=== PATIENT | female | born 1965 | race Caucasian/White ===

== ENCOUNTER 2017-11-30 14:31 | Inpatient (IN) | payer OTHER ==
[~2017-11-30] VITALS: Ht 177.8 cm; Wt 90.0 kg
[2017-11-30] VITALS (7 sets, daily range): BP systolic 134–238; BP diastolic 62–119; PULSE 65–129; RESP 14–20; TEMP 98.1–98.6; O2SAT 96–98
--- NOTE | 2017-11-30 15:05 | PD ---
HPI Chief Complaint: Medical Clearance Time Seen by Provider: 14:54 Travel History International Travel<30 days: No Contact w/Intl Traveler<30days: No Traveled to known affect area: No History of Present Illness HPI 52-year-old female patient with history of psychiatric issues, depression, hypertension, presents to the ER today brought in by EMS because somebody states that she was in front of a marijuana clinic, appears disoriented, had complained of nausea, and they had brought her in for medical evaluation. She was given Zofran by EMS, denies any vomiting, chest pains, or other issues. She is quite difficult to talk to, does not want to answer some questions. Appears somewhat distracted. She denies any homicidal or suicidal ideation. Her blood pressure is quite elevated in the ER. Modifying Factors: None Associated Signs & Symptoms: Disorientation, nausea, elevated blood pressure Risk Factors: Psychiatric history PFSH Past Medical History ?: Not Social History Tobacco Use: No Allergies-Medications (Allergen,Severity, Reaction): Coded Allergies: cyclobenzaprine (Verified Allergy, Intermediate, 11/30/17) itch Penicillins (Verified Allergy, Unknown, 11/30/17) Review of Systems ROS Limitations: Altered Mental Status Physical Exam Narrative GENERAL: Well-developed middle-age white female patient who appears agitated, awake, alert, oriented 3. SKIN: Focused skin assessment warm/dry. HEAD: Atraumatic. Normocephalic. EYES: Pupils equal and round. No scleral icterus. No injection or drainage. ENT: No nasal bleeding or discharge. Mucous membranes pink and moist. NECK: Trachea midline. No JVD. CARDIOVASCULAR: Regular rate and rhythm. No murmur appreciated. RESPIRATORY: No accessory muscle use. Clear to auscultation. Breath sounds equal bilaterally. GASTROINTESTINAL: Abdomen soft, non-tender, nondistended. Hepatic and splenic margins not palpable. MUSCULOSKELETAL: No obvious deformities. No clubbing. No cyanosis. No edema. NEUROLOGICAL: Awake and alert. No obvious cranial nerve deficits. Motor grossly within normal limits. Normal speech. PSYCHIATRIC: Agitated mood and affect; insight and judgment poor. Data Data Last Documented VS Vital Signs Date Time Temp Pulse Resp B/P (MAP) Pulse Ox O2 Delivery O2 Flow Rate FiO2 11/30/17 16:08 129 18 238/119 (158) 98 Room Air 11/30/17 14:40 98.6 Orders Orders Complete Blood Count With Diff (11/30/17 14:54) Comprehensive Metabolic Panel (11/30/17 14:54) Thyroid Stimulating Hormone (11/30/17 14:54) Urinalysis - C+S If Indicated (11/30/17 14:54) Electrocardiogram (11/30/17 14:54) Psych Screen (11/30/17 14:54) Drug Screen, Random Urine (11/30/17 14:54) Alcohol (Ethanol) (11/30/17 14:54) Lipase (11/30/17 14:54) Lorazepam Inj (Ativan Inj) (11/30/17 15:15) Sodium Chlor 0.9% 1000 Ml Inj (Ns 1000 M (11/30/17 16:00) Metoprolol Tartrate Inj (Lopressor Inj) (11/30/17 16:15) Admit To Inpatient (11/30/17 ) Code Status (11/30/17 16:17) Vital Signs (Adult) Q4H (11/30/17 16:17) Activity Oob Ad Pennie (11/30/17 16:17) Cardiovascular Surgeon / Telemetry MARY.Q8H (11/30/17 16:17) Intake + Output MARY.QSHIFT (11/30/17 16:17) Diet Heart Healthy (11/30/17 Dinner) Sodium Chloride 0.9% Flush (Ns Flush) (11/30/17 16:30) Sodium Chloride 0.9% Flush (Ns Flush) (11/30/17 21:00) Labetalol Inj (Trandate Inj) (11/30/17 16:30) Clonidine (Catapres) (11/30/17 16:30) Basic Metabolic Panel (Bmp) (12/01/17 06:00) Complete Blood Count With Diff (12/01/17 06:00) RENIN (11/30/17 16:17) Ua Includes Microscopic (11/30/17 16:17) Micro Albumin Creat Random Ur (11/30/17 16:17) Total Protein 24hr Urine (11/30/17 16:17) Metanephrines 24 Hr Urine (11/30/17 16:17) Electrocardiogram (11/30/17 ) Echo 2d Comp With Doppler (11/30/17 ) Inpatient Certification (11/30/17 ) Nifedipine Sr (Procardia Xl) (11/30/17 16:30) Consult Psychiatry (11/30/17 ) Levothyroxine (Synthroid) (11/30/17 16:45) Aspirin Ec (Ecotrin Ec) (12/01/17 09:00) Scd Bilateral/Knee High MARY.QSHIFT (11/30/17 16:32) Haloperidol Inj (Haldol Inj) (11/30/17 16:45) Free Thyroxine (T4) (11/30/17 16:32) Rapid Plasma Regin (Rpr) W Ttr (11/30/17 16:32) Vitamin B12 (11/30/17 16:32) Folate, Serum (11/30/17 16:32) Ammonia (11/30/17 16:32) Admit Order (Ed Use Only) (11/30/17 16:29) Labs Laboratory Tests Test 11/30/17 15:11 White Blood Count 11.2 TH/MM3 Red Blood Count 5.45 MIL/MM3 Hemoglobin 14.3 GM/DL Hematocrit 44.4 % Mean Corpuscular Volume 81.6 FL Mean Corpuscular Hemoglobin 26.2 PG Mean Corpuscular Hemoglobin Concent 32.1 % Red Cell Distribution Width 15.9 % Platelet Count 363 TH/MM3 Mean Platelet Volume 9.1 FL Neutrophils (%) (Auto) 77.9 % Lymphocytes (%) (Auto) 13.6 % Monocytes (%) (Auto) 7.5 % Eosinophils (%) (Auto) 0.4 % Basophils (%) (Auto) 0.6 % Neutrophils # (Auto) 8.7 TH/MM3 Lymphocytes # (Auto) 1.5 TH/MM3 Monocytes # (Auto) 0.8 TH/MM3 Eosinophils # (Auto) 0.0 TH/MM3 Basophils # (Auto) 0.1 TH/MM3 CBC Comment DIFF FINAL Differential Comment Urine Color YELLOW Urine Turbidity HAZY Urine pH 6.0 Urine Specific [place] 1.032 Urine Protein 100 mg/dL Urine Glucose (UA) NEG mg/dL Urine Ketones 10 mg/dL Urine Occult Blood NEG Urine Nitrite NEG Urine Bilirubin NEG Urine Urobilinogen 4.0 MG/DL Urine Leukocyte Esterase TRACE Urine RBC 1 /hpf Urine WBC 3 /hpf Urine Squamous Epithelial Cells 10 /hpf Urine Bacteria OCC /hpf Urine Hyaline Casts 9 /lpf Urine Mucus MANY /lpf Microscopic Urinalysis Comment CULT NOT INDICATED Blood Urea Nitrogen 17 MG/DL Creatinine 1.21 MG/DL Random Glucose 115 MG/DL Total Protein 8.5 GM/DL Albumin 4.2 GM/DL Calcium Level 9.8 MG/DL Alkaline Phosphatase 80 U/L Aspartate Amino Transf (AST/SGOT) 20 U/L Alanine Aminotransferase (ALT/SGPT) 26 U/L Total Bilirubin 0.4 MG/DL Sodium Level 140 MEQ/L Potassium Level 3.9 MEQ/L Chloride Level 106 MEQ/L Carbon Dioxide Level 21.3 MEQ/L Anion Gap 13 MEQ/L Estimat Glomerular Filtration Rate 46 ML/MIN Lipase 350 U/L Thyroid Stimulating Hormone 3rd Gen 1.780 uIU/ML Urine Opiates Screen NEG Urine Barbiturates Screen NEG Urine Amphetamines Screen NEG Urine Benzodiazepines Screen NEG Urine Cocaine Screen NEG Urine Cannabinoids Screen POS Ethyl Alcohol Level LESS THAN 3 MG/DL MDM Medical Decision Making Medical Screen Exam Complete: Yes Emergency Medical Condition: Yes Medical Record Reviewed: Yes Interpretation(s) Laboratory Tests Test 11/30/17 15:11 White Blood Count 11.2 TH/MM3 (4.0-11.0) Red Blood Count 5.45 MIL/MM3 (4.00-5.30) Mean Corpuscular Hemoglobin 26.2 PG (27.0-34.0) Neutrophils (%) (Auto) 77.9 % (16.0-70.0) Neutrophils # (Auto) 8.7 TH/MM3 (1.8-7.7) Urine Turbidity HAZY (CLEAR) Urine Protein 100 mg/dL (NEG-TRACE) Urine Ketones 10 mg/dL (NEG) Urine Urobilinogen 4.0 MG/DL (LESS THAN Urine Leukocyte Esterase TRACE (NEG) Urine Bacteria OCC /hpf (NONE) Urine Mucus MANY /lpf (OCC) Creatinine 1.21 MG/DL (0.50-1.00) Random Glucose 115 MG/DL (74-106) Total Protein 8.5 GM/DL (6.4-8.2) Estimat Glomerular Filtration Rate 46 ML/MIN (>89) Urine Cannabinoids Screen POS (NEG) Differential Diagnosis Hypertensive encephalopathy versus anxiety attack versus psychosis versus substance abuse Narrative Course Abdomen is benign and I do not suspect an acute intra-abdominal process. However, she is quite anxious and I had tried to give her Ativan but she is refusing at this time. She states that she wants to get her blood pressure issues checked out. She also states that she feels dehydrated. She was given some IV fluids, and metoprolol IV was ordered for the blood pressure elevations. My plan at this point would be to admit the patient for further treatment of her blood pressure. Case has been discussed with Dr. Foster who agrees to admit the patient. Lab work was fairly unremarkable otherwise. Diagnosis Primary Impression: Hypertensive urgency Admitting Information Admitting Physician Requests: it Fatmata Garcia MD November 30, 2017 15:05
[2017-11-30] MEDS ORDERED: LORazepam 2 MG/ML VIAL IV PUSH ONE ×2 (15:15→17:30)
[2017-11-30 15:27] LABS: AUTOMATED NEUTROPHIL # 8.7 TH/MM3 (1.8-7.7); BASOPHIL # 0.1 TH/MM3 (0-0.2); BASOPHIL % 0.6 % (0.0-2.0); EOSINOPHIL % 0.4 % (0.0-4.0); HEMATOCRIT 44.4 % (35.0-46.0); HEMOGLOBIN 14.3 GM/DL (11.6-15.3); LYMPH % 13.6 % (9.0-44.0); LYMPHOCYTE # 1.5 TH/MM3 (1.0-4.8); MEAN CELL VOLUME 81.6 FL (80.0-100.0); MEAN CORPUSCULAR HEMOGLOBIN 26.2 PG (27.0-34.0); MEAN CORPUSCULAR HGB CONC 32.1 % (32.0-36.0); MEAN PLATELET VOLUME 9.1 FL (7.0-11.0); MONO % 7.5 % (0.0-8.0); MONOCYTE # 0.8 TH/MM3 (0-0.9); NEUT % 77.9 % (16.0-70.0); PLATELET COUNT 363 TH/MM3 (150-450); RED BLOOD COUNT 5.45 MIL/MM3 (4.00-5.30); RED CELL DISTRIBUTION WIDTH 15.9 % (11.6-17.2); WHITE BLOOD COUNT 11.2 TH/MM3 (4.0-11.0)
[2017-11-30 15:34] LABS: BACTERIA, URINE OCC /hpf; BILIRUBIN, URINE NEG (NEG); BLOOD, URINE NEG (NEG); GLUCOSE,URINE NEG (NEG); HYALINE CAST, URINE 9 /lpf (RARE); KETONE, URINE 10 mg/dL (NEG); MUCUS URINE MANY /lpf (OCC); NITRITE,URINE NEG (NEG); SQUAMOUS EPITHELIAL CELL URINE 10 /hpf (0-5); URINE COLOR YELLOW (YELLW/STRAW); URINE LEUKOCYTE ESTERASE TRACE (NEG)
[2017-11-30 15:48] LABS: ALKALINE PHOSPHATASE 80 U/L (45-117); TOTAL BILIRUBIN ADULT 0.4 MG/DL (0.2-1.0); TOTAL PROTEIN 8.5 GM/DL (6.4-8.2)
[2017-11-30 15:53] LABS: ALBUMIN 4.2 GM/DL (3.4-5.0); ALT (GPT) 26 U/L (10-53); AST (GOT) 20 U/L (15-37); BICARBONATE 21.3 MEQ/L (21.0-32.0); BLOOD UREA NITROGEN 17 MG/DL (7-18); CALCIUM 9.8 MG/DL (8.5-10.1); CHLORIDE 106 MEQ/L (98-107); CREATININE 1.21 MG/DL (0.50-1.00); GLOMERULAR FILTRATION RATE 46 ML/MIN (>89); GLUCOSE,RANDOM 115 MG/DL (74-106); SODIUM (NA) 140 MEQ/L (136-145)
[2017-11-30] MEDS ORDERED: SODIUM CHLOR 0.9% 1000 ML INJ 1,000 ML IV ONE (16:00)
[2017-11-30] MEDS ORDERED: METOPROLOL TARTRATE 5 MG/5 ML VIAL IV PUSH PRN (16:15)
[2017-11-30] MEDS ORDERED: SODIUM CHLORIDE 0.9% FLUSH 10 ML FLUSH IV FLUSH PRN (16:30)
[2017-11-30] MEDS ORDERED: LABETALOL HCL 100 MG/20 ML VIAL IV PUSH PRN (16:30)
[2017-11-30] MEDS: NIFEdipine 30 MG SUSTAINED RELEASE TAB PO SCH (16:30)
[2017-11-30] MEDS ORDERED: cloNIDine HCL 0.1 MG TAB PO PRN (16:30)
--- NOTE | 2017-11-30 16:38 | HHI.HP ---
HPI Service CP Hospitalists Primary Care Physician No Primary Care Physician Admission Diagnosis HTN Urgency Chief Complaint: AMS Travel History International Travel<30 Days: No Contact w/Intl Traveler <30 Da: No Traveled to Known Affected Are: No History of Present Illness This a 52-year-old female patient with past medical history which includes hypertension not currently taking her prescribed medication, hyperlipidemia, hypothyroidism and LVH. Patient was brought to the emergency department by EMS after she was found in front of a marijuana clinic, appearing disoriented. Per ER notes patient had complained of nausea to EMS and was given Zofran. On evaluation patient appears acutely psychotic and is unable to give a acute history. Patient also agitated and wanting to leave the hospital. Patient has been placed under valderrama act by ER MD. Patient denies CP, SOB, N/V/D/C, fevers, chills or dysuria. Information gathered from patient as well as prior charting. BP on arrival to the ER 213/105 then increased to 238/119 Review of Systems ROS Limitations: Clinical Condition, Poor Historian Past Family Social History Past Medical History hypertension not currently taking her prescribed medication, hyperlipidemia, hypothyroidism and LVH Past Surgical History Knee surgery Reported Medications Patient reports she is not currently taking any medication View of outpatient records patient has not worked up any medication from [facility] pharmacy since June 2017 Allergies: Coded Allergies: cyclobenzaprine (Verified Allergy, Intermediate, 11/30/17) itch Penicillins (Verified Allergy, Unknown, 11/30/17) Family History Noncontributory Social History EtOH use Tobacco use Illicit drug use, urine toxicology positive for cannabinoids Physical Exam Vital Signs Vital Signs Date Time Temp Pulse Resp B/P (MAP) Pulse Ox O2 Delivery O2 Flow Rate FiO2 11/30/17 16:08 129 18 238/119 (158) 98 Room Air 11/30/17 14:40 98.6 110 17 213/105 (141) 97 Physical Exam GENERAL: This is a well-nourished, well-developed patient SKIN: No rashes, ecchymoses or lesions. Cool and dry. HEAD: Atraumatic. Normocephalic. No temporal or scalp tenderness. EYES: Extraocular motions intact. No scleral icterus. No injection or drainage. CARDIOVASCULAR: tachycardic RESPIRATORY: Clear to auscultation. Breath sounds equal bilaterally. GASTROINTESTINAL: Abdomen soft, non-tender, nondistended. MUSCULOSKELETAL: Extremities without clubbing, cyanosis, or edema. No joint tenderness, effusion, or edema noted. No calf tenderness. Negative Homans sign bilaterally. NEUROLOGICAL: Awake and alert but confused. No focal deficits noted. Motor and sensory grossly within normal limits. Five out of 5 muscle strength in all muscle groups. pressured speech. Laboratory Laboratory Tests Test 11/30/17 15:11 White Blood Count 11.2 Red Blood Count 5.45 Hemoglobin 14.3 Hematocrit 44.4 Mean Corpuscular Volume 81.6 Mean Corpuscular Hemoglobin 26.2 Mean Corpuscular Hemoglobin Concent 32.1 Red Cell Distribution Width 15.9 Platelet Count 363 Mean Platelet Volume 9.1 Neutrophils (%) (Auto) 77.9 Lymphocytes (%) (Auto) 13.6 Monocytes (%) (Auto) 7.5 Eosinophils (%) (Auto) 0.4 Basophils (%) (Auto) 0.6 Neutrophils # (Auto) 8.7 Lymphocytes # (Auto) 1.5 Monocytes # (Auto) 0.8 Eosinophils # (Auto) 0.0 Basophils # (Auto) 0.1 CBC Comment DIFF FINAL Differential Comment Urine Color YELLOW Urine Turbidity HAZY Urine pH 6.0 Urine Specific [place] 1.032 Urine Protein 100 Urine Glucose (UA) NEG Urine Ketones 10 Urine Occult Blood NEG Urine Nitrite NEG Urine Bilirubin NEG Urine Urobilinogen 4.0 Urine Leukocyte Esterase TRACE Urine RBC 1 Urine WBC 3 Urine Squamous Epithelial Cells 10 Urine Bacteria OCC Urine Hyaline Casts 9 Urine Mucus MANY Microscopic Urinalysis Comment CULT NOT INDICATED Blood Urea Nitrogen 17 Creatinine 1.21 Random Glucose 115 Total Protein 8.5 Albumin 4.2 Calcium Level 9.8 Alkaline Phosphatase 80 Aspartate Amino Transf (AST/SGOT) 20 Alanine Aminotransferase (ALT/SGPT) 26 Total Bilirubin 0.4 Sodium Level 140 Potassium Level 3.9 Chloride Level 106 Carbon Dioxide Level 21.3 Anion Gap 13 Estimat Glomerular Filtration Rate 46 Lipase 350 Thyroid Stimulating Hormone 3rd Gen 1.780 Urine Opiates Screen NEG Urine Barbiturates Screen NEG Urine Amphetamines Screen NEG Urine Benzodiazepines Screen NEG Urine Cocaine Screen NEG Urine Cannabinoids Screen POS Ethyl Alcohol Level LESS THAN 3 Result Diagram: 11/30/17 1511 11/30/17 1511 Caprini VTE Risk Assessment Caprini VTE Risk Assessment: No/Low Risk (score <= 1) Caprini Risk Assessment Model Point Value = 1 Point Value = 2 Point Value = 3 Point Value = 5 Age 41-60 Minor surgery BMI > 25 kg/m2 Swollen legs Varicose veins or History of unexplained or recurrent spontaneous Oral contraceptives or hormone replacement Sepsis (< 1 month) Serious lung disease, including pneumonia (< 1 month) Abnormal pulmonary function Acute myocardial infarction Congestive heart failure (< 1 month) History of inflammatory bowel disease Medical patient at bed rest Age 61-74 Arthroscopic surgery Major open surgery (> 45 min) Laparoscopic surgery (> 45 min) Malignancy Confined to bed (> 72 hours) Immobilizing plaster cast Central venous access Age >= 75 History of VTE Family history of VTE Factor V Leiden Prothrombin [id number] Lupus anticoagulant Anticardiolipin antibodies Elevated serum homocysteine Heparin-induced thrombocytopenia Other congenital or acquired thrombophilia Stroke (< 1 month) Elective arthroplasty Hip, pelvis, or leg fracture Acute spinal cord injury (< 1 month) Prophylaxis Regimen Total Risk Factor Score Risk Level Prophylaxis Regimen 0-1 Low Early ambulation 2 Moderate Order ONE of the following: *Sequential Compression Device (SCD) *Heparin 5000 units SQ BID 3-4 Higher Order ONE of the following medications: *Heparin 5000 units SQ TID *Enoxaparin/Lovenox 40 mg SQ daily (WT < 150 kg, CrCl > 30 mL/min) *Enoxaparin/Lovenox 30 mg SQ daily (WT < 150 kg, CrCl > 10-29 mL/min) *Enoxaparin/Lovenox 30 mg SQ BID (WT < 150 kg, CrCl > 30 mL/min) AND/OR *Sequential Compression Device (SCD) 5 or more Highest Order ONE of the following medications: *Heparin 5000 units SQ TID (Preferred with Epidurals) *Enoxaparin/Lovenox 40 mg SQ daily (WT < 150 kg, CrCl > 30 mL/min) *Enoxaparin/Lovenox 30 mg SQ daily (WT < 150 kg, CrCl > 10-29 mL/min) *Enoxaparin/Lovenox 30 mg SQ BID (WT < 150 kg, CrCl > 30 mL/min) AND *Sequential Compression Device (SCD) Assessment and Plan Problem List: (1) Hypertensive urgency ICD Codes: I16.0 - Hypertensive urgency Plan: Patient started on Procardia 30 mg twice daily Clonidine as needed HTN likely related to agitation and psychosis (2) Hypothyroidism ICD Codes: E03.9 - Hypothyroidism, unspecified Plan: - resume patient's home Synthroid 50 mcg daily - TSH 1.78, free T4 (3) Acute psychosis ICD Codes: F23 - Brief psychotic disorder Plan: - consult psych team, patient may require in patient psych admission - Patient currently under valderrama act per ER MD - Toxicology screen positive for Cannabinoids - UA reviewed no culture indicated - Ethyl alcohol level < 3 - TSH 1.78, free T4, B12 584, Folate 17.1, RPR nonreactive - CT head pending - Consult to psych Physician Certification 2 Midnight Certification Type: Admission for Inpatient Services Order for Inpatient Services The services are ordered in accordance with Medicare regulations or non- Medicare payer requirements, as applicable. In the case of services not specified as inpatient-only, they are appropriately provided as inpatient services in accordance with the 2-midnight benchmark. Estimated LOS (days): 2 days is the estimated time the patient will need to remain in the hospital, assuming treatment plan goals are met and no additional complications. Post-Hospital Plan: Not yet determined Mariam Loo November 30, 2017 16:38
[2017-11-30] MEDS: LEVOTHYROXINE SODIUM 50 MCG TAB PO SCH (16:45)
[2017-11-30] MEDS ORDERED: HALOPERIDOL LACTATE 5 MG/ML AMP IM PRN (16:45)
[2017-11-30 17:52] LABS: FOLATE 17.1 NG/ML (3.1-17.5); FREE T4 1.27 NG/DL (0.76-1.46)
[2017-11-30] MEDS: LORazepam 2 MG/ML VIAL IV PUSH SCH ×2 (19:25→23:54)
[2017-11-30] MEDS: SODIUM CHLORIDE 0.9% FLUSH 10 ML FLUSH IV FLUSH SCH (23:54)
[2017-12-01] VITALS (9 sets, daily range): BP systolic 118–240; BP diastolic 60–110; PULSE 62–121; RESP 16–22; TEMP 96.9–98.7; O2SAT 96–99
[2017-12-01] MEDS: LEVOTHYROXINE SODIUM 50 MCG TAB PO SCH (05:51)
[2017-12-01] MEDS: LORazepam 2 MG/ML VIAL IV PUSH SCH ×3 (05:51→18:40)
[2017-12-01 08:06] LABS: AUTOMATED NEUTROPHIL # 5.4 TH/MM3 (1.8-7.7); BASOPHIL # 0.1 TH/MM3 (0-0.2); BASOPHIL % 0.8 % (0.0-2.0); EOSINOPHIL # 0.2 TH/MM3 (0-0.4); HEMOGLOBIN 13.2 GM/DL (11.6-15.3); LYMPH % 24.2 % (9.0-44.0); LYMPHOCYTE # 2.1 TH/MM3 (1.0-4.8); MEAN CORPUSCULAR HEMOGLOBIN 27.4 PG (27.0-34.0); MEAN CORPUSCULAR HGB CONC 33.9 % (32.0-36.0); MEAN PLATELET VOLUME 8.7 FL (7.0-11.0); MONO % 10.3 % (0.0-8.0); MONOCYTE # 0.9 TH/MM3 (0-0.9); NEUT % 62.7 % (16.0-70.0); PLATELET COUNT 288 TH/MM3 (150-450); RED BLOOD COUNT 4.81 MIL/MM3 (4.00-5.30); RED CELL DISTRIBUTION WIDTH 15.9 % (11.6-17.2); WHITE BLOOD COUNT 8.7 TH/MM3 (4.0-11.0)
[2017-12-01 08:39] LABS: BICARBONATE 27.6 MEQ/L (21.0-32.0); CALCIUM 9.1 MG/DL (8.5-10.1); CREATININE 0.91 MG/DL (0.50-1.00)
[2017-12-01] MEDS ORDERED: ASPIRIN EC 81 MG TABEC PO SCH (09:00)
[2017-12-01] MEDS: SODIUM CHLORIDE 0.9% FLUSH 10 ML FLUSH IV FLUSH SCH (09:51)
[2017-12-01] MEDS: NIFEdipine 30 MG SUSTAINED RELEASE TAB PO SCH (09:51)
[2017-12-01] MEDS ORDERED: CLON0.1T PO (10:38)
--- NOTE | 2017-12-01 10:40 | HHI.DCPOC ---
Discharge Care Plan Diagnosis: (1) Acute psychosis (2) Hypertensive urgency Goals to Promote Your Health * To prevent worsening of your condition and complications * To maintain your health at the optimal level Directions to Meet Your Goals Take your medications as prescribed Follow your dietary instruction Follow activity as directed Keep your appointments as scheduled Take your immunizations and boosters as scheduled If your symptoms worsen call your PCP, if no PCP go to Urgent Care Center or Emergency Room Smoking is Dangerous to Your Health. Avoid second hand smoke Call the 24-hour hour crisis hotline for domestic abuse at Mariam Loo December 01, 2017 10:40
[2017-12-01] MEDS ORDERED: LEVO.05 PO (10:46)
--- NOTE | 2017-12-01 10:59 | HHI.DS ---
Discharge Summary Admission Date November 30, 2017 at 16:37 Discharge Date: December 01, 2017 Admitting Diagnosis HTN Urgency (1) Hypertensive urgency ICD Codes: I16.0 - Hypertensive urgency (2) Hypothyroidism ICD Codes: E03.9 - Hypothyroidism, unspecified (3) Acute psychosis ICD Codes: F23 - Brief psychotic disorder Consultants Dr. Baird, Psych Procedures none Brief History This a 52-year-old female patient with past medical history which includes hypertension not currently taking her prescribed medication, hyperlipidemia, hypothyroidism and LVH. Patient was brought to the emergency department by EMS after she was found in front of a marijuana clinic, appearing disoriented. Per ER notes patient had complained of nausea to EMS and was given Zofran. On evaluation patient appears acutely psychotic and is unable to give a acute history. Patient also agitated and wanting to leave the hospital. Patient has been placed under valderrama act by ER MD. Patient denies CP, SOB, N/V/D/C, fevers, chills or dysuria. Information gathered from patient as well as prior charting. BP on arrival to the ER 213/105 then increased to 238/119 CBC/BMP: 12/01/17 0751 12/01/17 0751 Significant Findings Laboratory Tests Test 11/30/17 15:11 11/30/17 19:44 12/01/17 07:51 White Blood Count 11.2 TH/MM3 (4.0-11.0) Red Blood Count 5.45 MIL/MM3 (4.00-5.30) Mean Corpuscular Hemoglobin 26.2 PG (27.0-34.0) Neutrophils (%) (Auto) 77.9 % (16.0-70.0) Neutrophils # (Auto) 8.7 TH/MM3 (1.8-7.7) Urine Turbidity HAZY (CLEAR) Urine Protein 100 mg/dL (NEG-TRACE) Urine Ketones 10 mg/dL (NEG) Urine Urobilinogen 4.0 MG/DL (LESS THAN Urine Leukocyte Esterase TRACE (NEG) Urine Bacteria OCC /hpf (NONE) Urine Mucus MANY /lpf (OCC) Creatinine 1.21 MG/DL (0.50-1.00) Random Glucose 115 MG/DL (74-106) Total Protein 8.5 GM/DL (6.4-8.2) Estimat Glomerular Filtration Rate 46 ML/MIN (>89) 64 ML/MIN (>89) Urine Cannabinoids Screen POS (NEG) Monocytes (%) (Auto) 10.3 % (0.0-8.0) PE at Discharge GENERAL: This is a well-nourished, well-developed patient SKIN: No rashes, ecchymoses or lesions. Cool and dry. CARDIOVASCULAR: tachycardic RESPIRATORY: Clear to auscultation. Breath sounds equal bilaterally. GASTROINTESTINAL: Abdomen soft, non-tender, nondistended. MUSCULOSKELETAL: Extremities without clubbing, cyanosis, or edema. No joint tenderness, effusion, or edema noted. No calf tenderness. Negative Homans sign bilaterally. NEUROLOGICAL: Awake and alert but confused. No focal deficits noted. Motor and sensory grossly within normal limits. Five out of 5 muscle strength in all muscle groups. Hospital Course Hypertensive urgency Patient started on Procardia 30 mg twice daily Clonidine as needed HTN likely related to agitation and psychosis Hypothyroidism - resume patient's home Synthroid 50 mcg daily - TSH 1.78, free T4 Acute psychosis - consult psych team, patient may require in patient psych admission - Patient currently under valderrama act per ER MD - Toxicology screen positive for Cannabinoids - UA reviewed no culture indicated - Ethyl alcohol level < 3 - TSH 1.78, free T4, B12 584, Folate 17.1, RPR nonreactive - CT head pending - Consult to psych, appreciate input. Will DC patient to inpatient psych department Pt Condition on Discharge: Stable Discharge Disposition: Disc to Psych Care Fac Discharge Instructions DIET: Follow Instructions for: Heart Healthy Diet Activities you can perform: Regular-No Restrictions Follow up Referrals: PCP Follow-up - [address] Ruvalcaba Psychiatry Adult - Today New Medications: Clonidine (Clonidine) 0.1 Mg Tab 0.1 MG PO Q6HR PRN for SBP>160, DBP>90, #30 TAB 0 Refills Levothyroxine (Synthroid) 50 Mcg Tab 50 MCG PO DAILY@0600 for thyroid, #30 TAB 0 Refills Mariam Loo December 01, 2017 10:59
--- NOTE | 2017-12-01 12:19 | PD.PSY.CON ---
Provisional Diagnosis Admission Date November 30, 2017 at 16:37 [place] I. Unspecified psychosis, history of depression, cannabis use disorder [place] II. Deferred [place] III. Hypothyroidism, diabetes mellitus, hypertension [place] IV. Disorganized, acutely psychotic [place] V. 35 History of Present Illness Service Psychiatry Consult Requested By Medicine Reason for Consult psychosis Primary Care Physician No Primary Care Physician HPI The patient is 52-year-old woman, domiciled in [facility], single, no kids, unemployed, supported by [facility], with reported psychiatric history of depression, no previous psychiatric hospitalizations, no previous suicide attempts, she has outpatient psychiatric care in [place] with Ms. Rivers, nurse practitioner, she does not remember the medication that she is taking, medical history of hypertension, hypothyroidism, diabetes not currently taking her prescribed medication, Patient was brought to the emergency department by EMS after she was found in front of a marijuana clinic, appearing disoriented. Per ER notes patient had complained of nausea to EMS and was given Zofran. On evaluation patient appears acutely psychotic and is unable to give a acute history. Patient also agitated and wanting to leave the hospital. Patient has been placed under valderrama act by ER MD DUE to psychotic behavior.BP on arrival to the ER 213/105 then increased to 238/119. TSH 1.78, free T4, B12 584, Folate 17.1, RPR nonreactive. CT head pending. EMR was reviewed. Case was discussed with primary medical team. On psychiatric evaluation I find a patient that is irritable, poorly cooperative, very suspicious, internally preoccupied, paranoid and also acting very erratically. Once the patient saw me and I presented myself with a psychiatrist she is started yelling at me stating that "you know everything is inside my bag, I am going to get the papers they looking for", and she is seen looking persistently inside her bag. When I asked her why does she think that I looking for any, her answer is "I do not know exactly who sent you here and why are you here", and become extremely tangential with Nasir loosening of associations. She makes several accusations with no based in reality. She seems to have a poor content with the reality but also a very poor ego boundaries. When I got out of the room and I was speaking with her nurse the patient continued inside her room talking to herself , became quite agitated and got half naked out of her room. I was able to redirect her and deescalated her verbally. The nurse reports that the patient has been very disorganized, verbally hostile, talking to herself very difficult to deal with in the medical floor. Review of Systems Constitutional: DENIES: Diaphoretic episodes, Fatigue, Fever, Weight gain, Weight loss, Chills, Dizziness, Change in appetite, Night Sweats Endocrine: DENIES: Abnorml menstrual pattern, Heat/cold intolerance, Polydipsia , Polyuria, Polyphagia Eyes: DENIES: Blurred vision, Diplopia, Eye inflammation, Eye pain, Vision loss , Photosensitivity, Double Vision Ears, nose, mouth, throat: DENIES: Tinnitus, Hearing loss, Vertigo, Nasal discharge, Oral lesions, Throat pain, Hoarseness, Ear Pain, Running Nose, Epistaxis, Sinus Pain, Toothache, Odynophagia Respiratory: DENIES: Apneas, Cough, Snoring, Wheezing, Hemoptysis, Sputum production, Shortness of breath Cardiovascular: DENIES: Chest pain, Palpitations, Syncope, Dyspnea on Exertion , PND, Lower Extremity Edema, Orthopnea, Claudication Gastrointestinal: DENIES: Abdominal pain, Black stools, Bloody stools, Constipation, Diarrhea, Nausea, Vomiting, Difficulty Swallowing, Anorexia Genitourinary: DENIES: Abnormal vaginal bleeding, Dysmenorrhea, Dyspareunia, Sexual dysfunction, Urinary frequency, Urinary incontinence, Urgency, Hematuria , Dysuria, Nocturia, Vaginal discharge Musculoskeletal: DENIES: Joint pain, Muscle aches, Stiffness, Joint Swelling, Back pain, Neck pain Integumentary: DENIES: Abnormal pigmentation, Pruritus, Rash, Nail changes, Breast masses, Breast skin changes, Nipple discharge Hematologic/lymphatic: DENIES: Bruising, Lymphadenopathy Immunologic/allergic: DENIES: Eczema, Urticaria Neurologic: DENIES: Abnormal gait, Headache, Localized weakness, Paresthesias, Seizures, Speech Problems, Tremor, Poor Balance Psychiatric: COMPLAINS OF: Agitation, Delusions, DENIES: Anxiety, Confusion, Mood changes, Depression, Hallucinations, Suicidal Ideation, Homicidal Ideation Past Family Social History Coded Allergies: cyclobenzaprine (Verified Allergy, Intermediate, 11/30/17) itch Penicillins (Verified Allergy, Unknown, 11/30/17) Current Medications Medications (Trade) Dose Ordered Sig/Sonia Route Start Time Stop Time Status Last Admin (Lopressor Inj) 5 mg Q5M PRN IV PUSH 11/30/17 16:15 11/30/17 17:20 (NS Flush) 2 ml UNSCH PRN IV FLUSH 11/30/17 16:30 12/01/17 05:51 (NS Flush) 2 ml BID IV FLUSH 11/30/17 21:00 12/01/17 09:51 (Trandate Inj) 10 mg Q6H PRN IV PUSH 11/30/17 16:30 (Catapres) 0.1 mg Q6H PRN PO 11/30/17 16:30 (Procardia Xl) 30 mg DAILY PO 11/30/17 16:30 12/01/17 09:51 (Synthroid) 50 mcg DAILY@0600 PO 11/30/17 16:45 12/01/17 05:51 (Ecotrin Ec) 81 mg DAILY PO 12/01/17 09:00 12/01/17 09:51 (Haldol Inj) 5 mg Q8HR PRN IM 11/30/17 16:45 (Ativan Inj) 2 mg Q6H IV PUSH 11/30/17 18:45 12/01/17 05:51 Family Psych History Patient reports that her mother has depression Social History Patient was born and raised in [place], she lives alone in [place], single, no kids , unemployed, supported by [employer], her highest level of education is high school Patient's Strengths (min. 2) Verbal communication, outpatient care Physical Exam Patient is agitated, restless, but no EPS, no withdrawal symptoms, no acute dystonia, no tardive dyskinesia, no gait disturbance present Vital Signs Vital Signs Date Time Temp Pulse Resp B/P (MAP) Pulse Ox O2 Delivery O2 Flow Rate FiO2 12/01/17 09:51 106 12/01/17 08:00 97.8 22 178/108 (131) 96 11/30/17 18:55 Room Air I/O 12/01/17 12/01/17 12/02/17 08:00 16:00 00:00 Intake Total 1600 ml Balance 1600 ml Lab Results Test 11/30/17 15:11 11/30/17 19:44 12/01/17 07:51 12/01/17 10:18 White Blood Count 11.2 TH/MM3 8.7 TH/MM3 Red Blood Count 5.45 MIL/MM3 4.81 MIL/MM3 Hemoglobin 14.3 GM/DL 13.2 GM/DL Hematocrit 44.4 % 39.0 % Mean Corpuscular Volume 81.6 FL 81.0 FL Mean Corpuscular Hemoglobin 26.2 PG 27.4 PG Mean Corpuscular Hemoglobin Concent 32.1 % 33.9 % Red Cell Distribution Width 15.9 % 15.9 % Platelet Count 363 TH/MM3 288 TH/MM3 Mean Platelet Volume 9.1 FL 8.7 FL Neutrophils (%) (Auto) 77.9 % 62.7 % Lymphocytes (%) (Auto) 13.6 % 24.2 % Monocytes (%) (Auto) 7.5 % 10.3 % Eosinophils (%) (Auto) 0.4 % 2.0 % Basophils (%) (Auto) 0.6 % 0.8 % Neutrophils # (Auto) 8.7 TH/MM3 5.4 TH/MM3 Lymphocytes # (Auto) 1.5 TH/MM3 2.1 TH/MM3 Monocytes # (Auto) 0.8 TH/MM3 0.9 TH/MM3 Eosinophils # (Auto) 0.0 TH/MM3 0.2 TH/MM3 Basophils # (Auto) 0.1 TH/MM3 0.1 TH/MM3 CBC Comment DIFF FINAL DIFF FINAL Differential Comment Urine Color YELLOW Urine Turbidity HAZY Urine pH 6.0 Urine Specific [place] 1.032 Urine Protein 100 mg/dL Urine Glucose (UA) NEG mg/dL Urine Ketones 10 mg/dL Urine Occult Blood NEG Urine Nitrite NEG Urine Bilirubin NEG Urine Urobilinogen 4.0 MG/DL Urine Leukocyte Esterase TRACE Urine RBC 1 /hpf Urine WBC 3 /hpf Urine Squamous Epithelial Cells 10 /hpf Urine Bacteria OCC /hpf Urine Hyaline Casts 9 /lpf Urine Mucus MANY /lpf Microscopic Urinalysis Comment CULT NOT INDICATED Blood Urea Nitrogen 17 MG/DL 11 MG/DL Creatinine 1.21 MG/DL 0.91 MG/DL Random Glucose 115 MG/DL 92 MG/DL Total Protein 8.5 GM/DL Albumin 4.2 GM/DL Calcium Level 9.8 MG/DL 9.1 MG/DL Alkaline Phosphatase 80 U/L Aspartate Amino Transf (AST/SGOT) 20 U/L Alanine Aminotransferase (ALT/SGPT) 26 U/L Total Bilirubin 0.4 MG/DL Sodium Level 140 MEQ/L 141 MEQ/L Potassium Level 3.9 MEQ/L 3.6 MEQ/L Chloride Level 106 MEQ/L 106 MEQ/L Carbon Dioxide Level 21.3 MEQ/L 27.6 MEQ/L Anion Gap 13 MEQ/L 7 MEQ/L Estimat Glomerular Filtration Rate 46 ML/MIN 64 ML/MIN Lipase 350 U/L Vitamin B12 Level 584 PG/ML Folate 17.1 NG/ML Free Thyroxine 1.27 NG/DL Thyroid Stimulating Hormone 3rd Gen 1.780 uIU/ML Urine Opiates Screen NEG Urine Barbiturates Screen NEG Urine Amphetamines Screen NEG Urine Benzodiazepines Screen NEG Urine Cocaine Screen NEG Urine Cannabinoids Screen POS Ethyl Alcohol Level LESS THAN 3 MG/DL Ammonia 29 MCMOL/L Rapid Plasma Reagin NON-REACTIVE Mental Status Examination Appearance: Disheveled Consciousness: Alert Orientation: x4 Motor Activity: Normal gait Speech: Unremarkable Language: Adequate Fund of Knowledge: Adequate Attention and Concentration: Adequate Memory: Unremarkable Mood: Angry Affect: Irritable Thought Process & Associations: Loose associations, Disorganized Thought Content: Bizarre thinking, Racing thoughts, Delusional, Obsessions Hallucination Type: None Delusion Type: Paranoid Suicidal Ideation: No Suicidal Plan: No Suicidal Intention: No Homicidal Ideation: No Homicidal Plan: No Homicidal Intention: No Insight: Poor Judgment: Poor Assessment & Plan Problem List: (1) Unspecified psychosis ICD Codes: F29 - Unspecified psychosis not due to a substance or known physiological condition Assessment & Plan: On psychiatric evaluation this patient presented irritable, superficially cooperative, agitated, internally preoccupied, paranoid verbally hostile. She has nasir loosening of associations, rapid speech, tangential and disorganized thought and a significant reality distortion. The patient reports just history of depression, she denies previous psychiatric hospitalizations, she denies previous suicidal attempts. She does report that she has outpatient psychiatric care with nurse practitioner Ms. Rivers in [place], which is unable to recall the name of the psychotropics she is taking. Current presentation seems to be secondary to a primary psychotic process decompensation, but there is no collateral information to confirm baseline. Another alternative are cluster B spectrum personality pathology and substance-induced psychosis, but the patient is just positive for cannabis at this moment. Given the level of disorganization and detachment from reality the patient could be a danger to self and others and she needs psychiatric hospitalization for stabilization. I will start Seroquel 25 mg twice daily. Collateral information is crucial to complete the psychiatric assessment. Transfer to psychiatry once medically appropriate. Brief supportive psychotherapy, psychoeducation and motivation provided. Assessment & Plan Estimated LOS: days Chuy Baird MD December 01, 2017 12:19
[2017-12-01] MEDS ORDERED: LORazepam 2 MG/ML VIAL IV PUSH ONE (15:00)
--- NOTE | 2017-12-01 16:32 | HHI.PR ---
Subjective Remarks Patient seen with Kristin Ivan Patient agitated fell in the shower Objective Vitals Vital Signs Date Time Temp Pulse Resp B/P (MAP) Pulse Ox O2 Delivery O2 Flow Rate FiO2 12/01/17 15:12 98.7 104 20 177/97 (123) 96 12/01/17 14:00 201/103 (135) 12/01/17 12:00 98.7 118 19 240/107 (151) 99 12/01/17 09:51 106 12/01/17 08:00 97.8 80 22 178/108 (131) 96 12/01/17 04:20 98.0 80 16 118/65 (82) 98 12/01/17 00:30 98.6 62 16 128/60 (82) 97 12/01/17 00:00 83 11/30/17 20:00 98.1 65 16 134/62 (86) 97 11/30/17 19:50 11/30/17 18:55 89 16 162/76 (104) 96 Room Air 11/30/17 18:47 89 20 162/76 (104) 96 Room Air 11/30/17 17:47 93 14 159/74 (102) 98 11/30/17 17:24 110 18 232/98 (142) 97 Room Air 12/01/17 12/01/17 12/02/17 15:00 23:00 07:00 Intake Total 120 ml Balance 120 ml Intake Oral 120 ml Result Diagram: 12/01/17 0751 12/01/17 0751 Other Results Laboratory Tests Test 11/30/17 15:11 11/30/17 19:44 12/01/17 07:51 12/01/17 10:18 White Blood Count 11.2 TH/MM3 8.7 TH/MM3 Red Blood Count 5.45 MIL/MM3 4.81 MIL/MM3 Hemoglobin 14.3 GM/DL 13.2 GM/DL Hematocrit 44.4 % 39.0 % Mean Corpuscular Volume 81.6 FL 81.0 FL Mean Corpuscular Hemoglobin 26.2 PG 27.4 PG Mean Corpuscular Hemoglobin Concent 32.1 % 33.9 % Red Cell Distribution Width 15.9 % 15.9 % Platelet Count 363 TH/MM3 288 TH/MM3 Mean Platelet Volume 9.1 FL 8.7 FL Neutrophils (%) (Auto) 77.9 % 62.7 % Lymphocytes (%) (Auto) 13.6 % 24.2 % Monocytes (%) (Auto) 7.5 % 10.3 % Eosinophils (%) (Auto) 0.4 % 2.0 % Basophils (%) (Auto) 0.6 % 0.8 % Neutrophils # (Auto) 8.7 TH/MM3 5.4 TH/MM3 Lymphocytes # (Auto) 1.5 TH/MM3 2.1 TH/MM3 Monocytes # (Auto) 0.8 TH/MM3 0.9 TH/MM3 Eosinophils # (Auto) 0.0 TH/MM3 0.2 TH/MM3 Basophils # (Auto) 0.1 TH/MM3 0.1 TH/MM3 CBC Comment DIFF FINAL DIFF FINAL Differential Comment Urine Color YELLOW Urine Turbidity HAZY Urine pH 6.0 Urine Specific [place] 1.032 Urine Protein 100 mg/dL Urine Glucose (UA) NEG mg/dL Urine Ketones 10 mg/dL Urine Occult Blood NEG Urine Nitrite NEG Urine Bilirubin NEG Urine Urobilinogen 4.0 MG/DL Urine Leukocyte Esterase TRACE Urine RBC 1 /hpf Urine WBC 3 /hpf Urine Squamous Epithelial Cells 10 /hpf Urine Bacteria OCC /hpf Urine Hyaline Casts 9 /lpf Urine Mucus MANY /lpf Microscopic Urinalysis Comment CULT NOT INDICATED Blood Urea Nitrogen 17 MG/DL 11 MG/DL Creatinine 1.21 MG/DL 0.91 MG/DL Random Glucose 115 MG/DL 92 MG/DL Total Protein 8.5 GM/DL Albumin 4.2 GM/DL Calcium Level 9.8 MG/DL 9.1 MG/DL Alkaline Phosphatase 80 U/L Aspartate Amino Transf (AST/SGOT) 20 U/L Alanine Aminotransferase (ALT/SGPT) 26 U/L Total Bilirubin 0.4 MG/DL Sodium Level 140 MEQ/L 141 MEQ/L Potassium Level 3.9 MEQ/L 3.6 MEQ/L Chloride Level 106 MEQ/L 106 MEQ/L Carbon Dioxide Level 21.3 MEQ/L 27.6 MEQ/L Anion Gap 13 MEQ/L 7 MEQ/L Estimat Glomerular Filtration Rate 46 ML/MIN 64 ML/MIN Lipase 350 U/L Vitamin B12 Level 584 PG/ML Folate 17.1 NG/ML Free Thyroxine 1.27 NG/DL Thyroid Stimulating Hormone 3rd Gen 1.780 uIU/ML Urine Opiates Screen NEG Urine Barbiturates Screen NEG Urine Amphetamines Screen NEG Urine Benzodiazepines Screen NEG Urine Cocaine Screen NEG Urine Cannabinoids Screen POS Ethyl Alcohol Level LESS THAN 3 MG/DL Ammonia 29 MCMOL/L Rapid Plasma Reagin NON-REACTIVE Human Chorionic Gonadotropin, Quant 2 MIU/ML Objective Remarks GENERAL: This is a well-nourished, well-developed patient, agitated SKIN: abrasion right knee CARDIOVASCULAR: tachycardic RESPIRATORY: Clear to auscultation. Breath sounds equal bilaterally. GASTROINTESTINAL: Abdomen soft, non-tender, nondistended. MUSCULOSKELETAL: Extremities without clubbing, cyanosis, or edema. No joint tenderness, effusion, or edema noted. No calf tenderness. Negative Homans sign bilaterally. NEUROLOGICAL: Awake and alert but confused. No focal deficits noted. Motor and sensory grossly within normal limits. Five out of 5 muscle strength in all muscle groups. Procedures none A/P Problem List: (1) Hypertensive urgency ICD Codes: I16.0 - Hypertensive urgency Plan: Patient started on Procardia 30 mg twice daily Clonidine as needed HTN likely related to agitation and psychosis (2) Hypothyroidism ICD Codes: E03.9 - Hypothyroidism, unspecified Plan: - resume patient's home Synthroid 50 mcg daily - TSH 1.78, free T4 (3) Acute psychosis ICD Codes: F23 - Brief psychotic disorder Plan: - consult psych team, patient may require in patient psych admission - Patient currently under valderrama act per ER MD - Toxicology screen positive for Cannabinoids - UA reviewed no culture indicated - Ethyl alcohol level < 3 - TSH 1.78, free T4, B12 584, Folate 17.1, RPR nonreactive - CT head pending - Consult to psych, plan to DC to inpatient medical psych once BP controlled and imaging completed (4) Fall ICD Codes: W19.XXXA - Unspecified fall, initial encounter Plan: slip an fall in the shower Patient denies LOC or head trauma patient does have abrasion on right knee- local wound care provided by nursing staff X ray right knee ordered and pending Patient endorses localized pain right knee 2-3 patient offers no other painful areas Mariam Loo December 01, 2017 16:32
--- NOTE | 2017-12-01 18:06 | EKG ---
Date Performed: 11/30/2017 Time Performed: 15:21:33 PTAGE: 52 years EKG: SINUS TACHYCARDIA NONSPECIFIC T-WAVE ABNORMALITY ABNORMAL RHYTHM ECG NO PREVIOUS TRACING DOCTOR: Gisselle Coker Interpretating Date/Time 12/01/2017 17:59:38
--- NOTE | 2017-12-01 18:08 | RADRPT ---
EXAM DATE: 12/01/2017 6:02 PM EDT AGE/SEX: 52 years / Female INDICATIONS: Right knee pain after fall. CLINICAL DATA: This is the patient's initial encounter. Patient reports that signs and symptoms have been present for 1 day and indicates a pain score of Nonresponsive. MEDICAL/SURGICAL HISTORY: None. . Rell Larios's right knee surgery. COMPARISON: No prior [facility] exams available for comparison. FINDINGS: Bone density is normal. The osseous structures are normal alignment. There is mild narrowing of the m edial compartment of the knee and there is a focal contour convexity in the central aspect of the med ial femoral condyle with some mild lucency seen on the frontal view. This is of uncertain significanc e; this is not the typical location for osteochondritis dissecans. On the lateral view, there is a ro unded ossific density seen in the anterior knee joint which could represent the finding on frontal vi ew. The suprapatellar soft tissues are normal in thickness. No fracture seen. CONCLUSION: 1. No fracture seen. 2. There is an opacity which superimposes upon the medial femoral condyle on frontal view. Different ial considerations include osteochondritis dissecans and a loose body. Electronically signed by: Daniel Joaquin MD 12/01/2017 6:07 PM EDT
[2017-12-01] MEDS ORDERED: QUEtiapine FUMARATE 25 MG TAB PO SCH (21:00)
[2017-12-01] MEDS ORDERED: NIFE1TAB85 PO (21:46)
[2017-12-01] MEDS ORDERED: QUET1TAB7 PO (21:46)
[2017-12-01] MEDS ORDERED: ASPI81TA23 PO (21:46)
--- NOTE | 2017-12-01 21:56 | RADRPT ---
EXAM DATE: 12/01/2017 9:47 PM EDT AGE/SEX: 52 years / Female INDICATIONS: Altered mental status. CLINICAL DATA: This is the patient's initial encounter. Patient reports that signs and symptoms have been present for 1 day and indicates a pain score of 0/10. MEDICAL/SURGICAL HISTORY: Hypertension. None. RADIATION DOSE: 48.73 CTDI (mGy) COMPARISON: No prior [facility] exams available for comparison. TECHNIQUE: CT of the head without contrast. Using automated exposure control and adjustment of the mA and/or kV according to patient size, radiation dose was kept as low as reasonably achievable to ob tain optimal diagnostic quality images. FINDINGS: Cerebrum: The ventricles are normal for age. No evidence of midline shift, mass lesion, hemorrhage or acute infarction. No extraaxial fluid collections are seen. Posterior Fossa: The cerebellum and brainstem are intact. The 4th ventricle is midline. The cerebe llopontine angle is unremarkable. Extracranial: The visualized portion of the orbits is intact. Skull: The calvaria is intact. No evidence of skull fracture. CONCLUSION: 1. Exam degraded by motion. No acute intracranial abnormalities. Electronically signed by: Vinicius Jack MD 12/01/2017 9:54 PM EDT
== END 2017-12-01 18:58 | DRG 305 ==
LOC: NEPE 14:31 → NEDA 16:37 → N05B 20:11
PROVIDERS: ADMIT Hospitalist; ATTEND Hospitalist
DX: I16.0 Hypertensive urgency (principal); F23 Brief psychotic disorder; E03.9 Hypothyroidism, unspecified; R41.82 Altered mental status, unspecified; I10 Essential (primary) hypertension; R00.0 Tachycardia, unspecified; F12.929 Cannabis use, unspecified with intoxication, unspecified; S80.211A Abrasion, right knee, initial encounter; W18.2XXA Fall in (into) shower or empty bathtub, initial encounter; Y92.231 Patient bathroom in hospital as the place of occurrence of the external cause; Y93.E1 Activity, personal bathing and showering
CPT/HCPCS: 70450; 73564; 80048; 80053; 80307; 81001; 82043; 82140; 82607; 82746; 83690; 84244; 84439; 84443; 84702; 85025; 86592; 93005; J2060; J7030

== ENCOUNTER 2017-12-01 12:52 | Inpatient (IN) | payer OTHER ==
[~2017-12-01 12:52] MED LIST: CLON0.1T PO; LEVO.05 PO
[2017-12-01 20:00] VITALS: BP 172/92; PULSE 100; RESP 17; TEMP 98.5; O2SAT 96
[2017-12-01] MEDS ORDERED: NIFE1TAB85 PO (21:46)
[2017-12-01] MEDS ORDERED: ASPI81TA23 PO (21:46)
[2017-12-01] MEDS ORDERED: QUET1TAB7 PO (21:46)
[2017-12-01] MEDS ORDERED: LORazepam 2 MG/ML VIAL IM PRN (22:30)
[2017-12-01] MEDS ORDERED: MAGNESIUM HYDROXIDE SUSP 30 ML CUP PO PRN (22:30)
[2017-12-01] MEDS ORDERED: ALUMINUM/MAGNESIUM/SIMETH 30 ML CUP PO PRN (22:30)
[2017-12-01] MEDS: cloNIDine HCL 0.1 MG TAB PO PRN (22:34)
[2017-12-02] VITALS: BP 193/88; PULSE 97
[2017-12-02 00:20] VITALS: BP 212/102; PULSE 95
[2017-12-02] MEDS ORDERED: cloNIDine HCL 0.1 MG/24 HR PATCH T-DERMAL ONE (01:15)
[2017-12-02 02:00] VITALS: BP 154/82
[2017-12-02] MEDS: LEVOTHYROXINE SODIUM 50 MCG TAB PO SCH (05:47)
[2017-12-02 06:00] VITALS: BP 188/102; PULSE 107; RESP 18; TEMP 98.3; O2SAT 97
[2017-12-02] MEDS: cloNIDine HCL 0.1 MG TAB PO PRN (07:02)
[2017-12-02 07:45] VITALS: BP 188/110; PULSE 110
[2017-12-02] MEDS: ASPIRIN EC 81 MG TABEC PO SCH (08:27)
[2017-12-02] MEDS: NIFEdipine 30 MG SUSTAINED RELEASE TAB PO SCH (08:27)
[2017-12-02] MEDS: diphenhydrAMINE HCL 50 MG CAP PO PRN ×2 (08:30→20:48)
[2017-12-02] MEDS: LORazepam 1 MG TAB PO PRN ×2 (08:30→16:08)
[2017-12-02] MEDS ORDERED: QUEtiapine FUMARATE 25 MG TAB PO SCH (09:00)
[2017-12-02] MEDS: NICOTINE 21 MG/24 HR PATCH T-DERMAL SCH (09:00)
[2017-12-02] MEDS: REMOVE OLD PATCH T-DERMAL SCH (09:00)
[2017-12-02 09:17] LABS: BICARBONATE 21.7 MEQ/L (21.0-32.0); BLOOD UREA NITROGEN 8 MG/DL (7-18); CALCIUM 8.9 MG/DL (8.5-10.1); CHLORIDE 106 MEQ/L (98-107); CREATININE 0.98 MG/DL (0.50-1.00); GLOMERULAR FILTRATION RATE 59 ML/MIN (>89); GLUCOSE,RANDOM 116 MG/DL (74-106); SODIUM (NA) 138 MEQ/L (136-145)
[2017-12-02 09:18] LABS: CHOLESTEROL 191 MG/DL (120-200); TRIGLYCERIDES 161 MG/DL (42-150)
[2017-12-02 09:20] LABS: CHOLESTEROL/ HDL RATIO 4.58 RATIO; HDL CHOLESTEROL 41.7 MG/DL (40.0-60.0); LDL CHOLESTEROL 117 MG/DL (0-99)
[2017-12-02 10:15] VITALS: BP 138/68
--- NOTE | 2017-12-02 15:39 | HHI.HP ---
Provisional Diagnosis Admission Date On December 01, 2017 at 19:02 [place] I. Unspecified psychosis,r/o schizophrenia Certification of Person's Competence To Provide Express and Informed Consent I have personally examined Dianne Mariano , a person being served at [facility] on, December 02, 2017 15:32. Express and informed consent means consent voluntarily given in writing, by a competent person, after sufficient explanation and disclosure of the subject matter involved to enable the person to make a knowing and willful decision without any element of force, fraud, deceit, duress, or other form of constraint or coercion. This person is 18 years of age or older, is not now known to be incompetent to consent to treatment with a guardian advocate, and does not have a health care surrogate or proxy currently making medical treatment decisions. I have found this person to be one of the following: [] Competent to provide express and informed consent, as defined above, for voluntary admission to this facility and is competent to provide express and informed consent for treatment. He/she has the consistent capacity to make well reasoned, willful, and knowing decisions concerning his or her medical or mental health treatment. The person fully and consistently understands the purpose of the admission for examination/placement and is fully capable of personally exercising all rights [place] [] Incompetent to provide express and informed consent to voluntary admission, and this is incompetent to provide express and informed consent to treatment. The person must be transferred to involuntary status and a petition for a guardian advocate filed with the Circuit Court. [x] Refusing to provide express and informed consent to voluntary admission but is competent to provide express and informed consent for treatment. The person must be discharged or transferred to involuntary status. Form shall be completed within 24 hours of a person's arrival at the receiving facility and filed in the clinical record of each person: 1. Admitted on a voluntary basis 2. Permitted to provide express and informed consent to his/her own treatment 3. Allowed to transfer from involuntary to voluntary status 4. Prior to permitting a person to consent to his or her own treatment after having been previously found incompetent to consent to treatment. History of Present Illness Capacity: Has Capacity HPI 12/01/2017 The patient is 52-year-old woman, domiciled in [facility] , single, no kids, unemployed, supported by [facility], with reported psychiatric history of depression, no previous psychiatric hospitalizations, no previous suicide attempts, she has outpatient psychiatric care in [place] with Ms. Rivers , nurse practitioner, she does not remember the medication that she is taking, medical history of hypertension, hypothyroidism, diabetes not currently taking her prescribed medication, Patient was brought to the emergency department by EMS after she was found in front of a marijuana clinic, appearing disoriented. Per ER notes patient had complained of nausea to EMS and was given Zofran. On evaluation patient appears acutely psychotic and is unable to give a acute history. Patient also agitated and wanting to leave the hospital. Patient has been placed under valderrama act by ER MD DUE to psychotic behavior.BP on arrival to the ER 213/105 then increased to 238/119. TSH 1.78, free T4, B12 584, Folate 17.1, RPR nonreactive. CT head pending. EMR was reviewed. Case was discussed with primary medical team. On psychiatric evaluation I find a patient that is irritable, poorly cooperative, very suspicious, internally preoccupied, paranoid and also acting very erratically. Once the patient saw me and I presented myself with a psychiatrist she is started yelling at me stating that "you know everything is inside my bag, I am going to get the papers they looking for", and she is seen looking persistently inside her bag. When I asked her why does she think that I looking for any, her answer is "I do not know exactly who sent you here and why are you here", and become extremely tangential with Nasir loosening of associations. She makes several accusations with no based in reality. She seems to have a poor content with the reality but also a very poor ego boundaries. When I got out of the room and I was speaking with her nurse the patient continued inside her room talking to herself , became quite agitated and got half naked out of her room. I was able to redirect her and deescalated her verbally. The nurse reports that the patient has been very disorganized, verbally hostile, talking to herself very difficult to deal with in the medical floor. 12/02/2017 on the psychiatric evaluation today the patient is found in her room, she is calm, cooperative, but continues to be quite disorganized, tangential with very odd behavior. She reports feeling much better, she says that she is happy to be here, but "please I do want to be in the newspaper". The patient has been witnessed to be very internally preoccupied, talking to herself in her room by nurses. She denies suicidal enemas ideation, she denies visual and auditory hallucinations. She clarifies that she has outpatient psychiatric care in [place] with Ms. Rivers, she says that she has been in Remeron 45 mg and "other medications that I do not remember". She denies the use of illegal drugs or alcohol. She is fully oriented 3. Review of Systems Constitutional: DENIES: Diaphoretic episodes, Fatigue, Fever, Weight gain, Weight loss, Chills, Dizziness, Change in appetite, Night Sweats Endocrine: DENIES: Abnorml menstrual pattern, Heat/cold intolerance, Polydipsia , Polyuria, Polyphagia Eyes: DENIES: Blurred vision, Diplopia, Eye inflammation, Eye pain, Vision loss , Photosensitivity, Double Vision Ears, nose, mouth, throat: DENIES: Tinnitus, Hearing loss, Vertigo, Nasal discharge, Oral lesions, Throat pain, Hoarseness, Ear Pain, Running Nose, Epistaxis, Sinus Pain, Toothache, Odynophagia Respiratory: DENIES: Apneas, Cough, Snoring, Wheezing, Hemoptysis, Sputum production, Shortness of breath Cardiovascular: DENIES: Chest pain, Palpitations, Syncope, Dyspnea on Exertion , PND, Lower Extremity Edema, Orthopnea, Claudication Gastrointestinal: DENIES: Abdominal pain, Black stools, Bloody stools, Constipation, Diarrhea, Nausea, Vomiting, Difficulty Swallowing, Anorexia Genitourinary: DENIES: Abnormal vaginal bleeding, Dysmenorrhea, Dyspareunia, Sexual dysfunction, Urinary frequency, Urinary incontinence, Urgency, Hematuria , Dysuria, Nocturia, Vaginal discharge Musculoskeletal: DENIES: Joint pain, Muscle aches, Stiffness, Joint Swelling, Back pain, Neck pain Hematologic/lymphatic: DENIES: Bruising, Lymphadenopathy Immunologic/allergic: DENIES: Eczema, Urticaria Neurologic: DENIES: Abnormal gait, Headache, Localized weakness, Paresthesias, Seizures, Speech Problems, Tremor, Poor Balance Psychiatric: COMPLAINS OF: Delusions, DENIES: Anxiety, Confusion, Mood changes , Depression, Hallucinations, Agitation, Suicidal Ideation, Homicidal Ideation Substance Abuse History Drugs/Alcohol past 12 months Denies the use of illegal drugs and alcohol Past Family Social History Coded Allergies: cyclobenzaprine (Verified Allergy, Intermediate, 11/30/17) itch Penicillins (Verified Allergy, Unknown, 11/30/17) Active Scripts Levothyroxine (Synthroid) 50 Mcg Tab, 50 MCG PO DAILY@0600 for thyroid, #30 TAB 0 Refills Prov:Mariam Loo 12/01/17 Clonidine (Clonidine) 0.1 Mg Tab, 0.1 MG PO Q6HR Y for SBP>160, DBP>90, #30 TAB 0 Refills Prov:Mariam Loo 12/01/17 Reported Medications Nifedipine ER 24 HR (Procardia XL) 30 Mg Tab, 30 MG PO DAILY, #30 TAB 0 Refills 12/01/[address] (Aspirin EC) 81 Mg Tabdr, 81 MG PO DAILY, TAB 0 Refills 12/01/17 Quetiapine (Quetiapine) 25 Mg Tab, 25 MG PO BID, #60 TAB 0 Refills 12/01/17 Current Medications Medications (Trade) Dose Ordered Sig/Sonia Route Start Time Stop Time Status Last Admin (Ecotrin Ec) 81 mg DAILY PO 12/02/17 09:00 12/02/17 08:27 (Catapres) 0.1 mg Q6HR PRN PO 12/01/17 22:30 12/02/17 07:02 (Synthroid) 50 mcg DAILY@0600 PO 12/02/17 06:00 12/02/17 05:47 (Procardia Xl) 30 mg DAILY PO 12/02/17 09:00 12/02/17 08:27 (SEROquel) 25 mg BID PO 12/02/17 09:00 12/02/17 08:27 (Ativan) 1 mg Q6H PRN PO 12/01/17 22:30 12/02/17 08:30 (Ativan Inj) 1 mg Q6H PRN IM 12/01/17 22:30 (Benadryl) 50 mg HS PRN PO 12/01/17 22:30 12/02/17 08:30 (Tylenol) 650 mg Q4H PRN PO 12/01/17 22:30 (Milk Of Magnesia Liq) 30 ml DAILY PRN PO 12/01/17 22:30 (Mag-Al Plus Susp Liq) 30 ml Q6H PRN PO 12/01/17 22:30 (Habitrol 21 Mg Patch.24 Hr) 1 patch DAILY T-DERMAL 12/02/17 09:00 Miscellaneous Information 1 DAILY T-DERMAL 12/02/17 09:00 Family Psych History Patient reports that her mother has depression Social History Patient was born and raised in [place], she lives alone in [place], single, no kids , unemployed, supported by [facility], her highest level of education is high school Patient's Strengths (min. 2) Outpatient psychiatric care Physical Exam No tremors, no EPS, no psychomotor retardation or agitation, no catatonic symptoms Vital Signs Vital Signs Date Time Temp Pulse Resp B/P (MAP) Pulse Ox O2 Delivery O2 Flow Rate FiO2 12/02/17 06:00 98.3 107 18 188/102 (130) 97 I/O 12/02/17 12/02/17 12/03/17 08:00 16:00 00:00 Intake Total 1800 ml Balance 1800 ml Lab Results Test 12/02/17 07:30 Blood Urea Nitrogen 8 MG/DL Creatinine 0.98 MG/DL Random Glucose 116 MG/DL Calcium Level 8.9 MG/DL Sodium Level 138 MEQ/L Potassium Level 3.5 MEQ/L Chloride Level 106 MEQ/L Carbon Dioxide Level 21.7 MEQ/L Anion Gap 10 MEQ/L Estimat Glomerular Filtration Rate 59 ML/MIN Triglycerides Level 161 MG/DL Cholesterol Level 191 MG/DL LDL Cholesterol 117 MG/DL HDL Cholesterol 41.7 MG/DL Cholesterol/HDL Ratio 4.58 RATIO Mental Status Examination Appearance: Appropriate Consciousness: Alert Orientation: x4 Motor Activity: Normal gait Speech: Unremarkable Language: Adequate Fund of Knowledge: Adequate Attention and Concentration: Adequate Memory: Unremarkable Mood: Angry Affect: Flat, Blunt Thought Process & Associations: Intact Thought Content: Thought blocking Hallucination Type: None Delusion Type: Bizarre, Paranoid Suicidal Ideation: No Suicidal Plan: No Suicidal Intention: No Homicidal Ideation: No Homicidal Plan: No Homicidal Intention: No Insight: Poor Judgment: Poor Assessment & Plan Problem List: (1) Unspecified psychosis ICD Codes: F29 - Unspecified psychosis not due to a substance or known physiological condition Assessment & Plan: On psychiatric evaluation this patient presented irritable, superficially cooperative, agitated, internally preoccupied, paranoid verbally hostile. She has nasir loosening of associations, rapid speech, tangential and disorganized thought and a significant reality distortion. The patient reports just history of depression, she denies previous psychiatric hospitalizations, she denies previous suicidal attempts. She does report that she has outpatient psychiatric care with nurse practitioner Ms. Rivers in [place], which is unable to recall the name of the psychotropics she is taking. Current presentation seems to be secondary to a primary psychotic process decompensation, but there is no collateral information to confirm baseline. Another alternative are cluster B spectrum personality pathology and substance-induced psychosis, but the patient is just positive for cannabis at this moment. Given the level of disorganization and detachment from reality the patient could be a danger to self and others and she needs psychiatric hospitalization for stabilization. I will start Abilify 5 mg daily, restart Remeron 15 mg at bedtime. Collateral information from outpatient psychiatrist is needed. Assessment & Plan Estimated LOS: Chuy Duarte MD December 02, 2017 15:39
[2017-12-02] MEDS: ARIPiprazole 5 MG TAB PO SCH (16:00)
[2017-12-02] MEDS ORDERED: HALOPERIDOL LACTATE 5 MG/ML AMP ONE (16:54)
[2017-12-02] MEDS ORDERED: HALOPERIDOL LACTATE 5 MG/ML AMP IM ONE (17:30)
[2017-12-02] MEDS: MIRTAZAPINE 15 MG TAB PO SCH (20:48)
[2017-12-03] MEDS: LEVOTHYROXINE SODIUM 50 MCG TAB PO SCH (06:10)
[2017-12-03 06:36] VITALS: BP 140/90; PULSE 97; RESP 19; TEMP 98; O2SAT 100
[2017-12-03] MEDS: REMOVE OLD PATCH T-DERMAL SCH (09:00)
[2017-12-03] MEDS: NICOTINE 21 MG/24 HR PATCH T-DERMAL SCH (09:00)
[2017-12-03] MEDS: NIFEdipine 30 MG SUSTAINED RELEASE TAB PO SCH (09:00)
[2017-12-03] MEDS: ARIPiprazole 5 MG TAB PO SCH (09:54)
[2017-12-03] MEDS: ASPIRIN EC 81 MG TABEC PO SCH (09:54)
--- NOTE | 2017-12-03 12:41 | PD.CONS ---
HPI Service CP Hospitalists Consult Requested By Psychiatry team Reason for Consult [facility] medical management Primary Care Physician No Primary Care Physician Diagnoses: History of Present Illness This a 52-year-old female patient with past medical history which includes hypertension not currently taking her prescribed medication, hyperlipidemia, hypothyroidism and LVH. Patient was brought to the emergency department by EMS on 11/30/17 after she was found in front of a marijuana clinic, appearing disoriented. Per ER notes patient had complained of nausea to EMS and was given Zofran. On evaluation patient appears acutely psychotic and is unable to give a acute history. Patient also agitated and wanting to leave the hospital. Patient has been placed under valderrama act by ER MD. Information gathered from patient as well as prior charting. Patient transferred to inpatient psychiatric unit 12/01/2017. We have been reconsulted for assistance with medical management. Patient continues to have hypertension during her episodes of agitation. Patient complains of generalized pain requesting marijuana for pain relief. Patient offers no other complaints at this time. Patient denies CP, SOB, N/V/D/C, fevers, chills or dysuria. Review of Systems ROS Limitations: Psychotic, Poor Historian Past Family Social History Allergies: Coded Allergies: cyclobenzaprine (Verified Allergy, Intermediate, 11/30/17) itch Penicillins (Verified Allergy, Unknown, 11/30/17) Physical Exam Vital Signs Vital Signs Date Time Temp Pulse Resp B/P (MAP) Pulse Ox O2 Delivery O2 Flow Rate FiO2 12/03/17 06:36 98.0 97 19 140/90 (107) 100 Physical Exam GENERAL: This is a well-nourished, well-developed patient, in no apparent distress. SKIN: No rashes, ecchymoses or lesions. Cool and dry. HEAD: Atraumatic. Normocephalic. No temporal or scalp tenderness. EYES: Pupils equal round and reactive. Extraocular motions intact. No scleral icterus. No injection or drainage. ENT: Nose without bleeding, purulent drainage or septal hematoma. Throat without erythema, tonsillar hypertrophy or exudate. Uvula midline. Airway patent. NECK: Trachea midline. No JVD or lymphadenopathy. Supple, nontender, no meningeal signs. CARDIOVASCULAR: Regular rate and rhythm without murmurs, gallops, or rubs. RESPIRATORY: Clear to auscultation. Breath sounds equal bilaterally. No wheezes , rales, or rhonchi. GASTROINTESTINAL: Abdomen soft, non-tender, nondistended. No hepato-splenomegaly , or palpable masses. No guarding. MUSCULOSKELETAL: Extremities without clubbing, cyanosis, or edema. No joint tenderness, effusion, or edema noted. No calf tenderness. Negative Homans sign bilaterally. NEUROLOGICAL: Awake and alert. Cranial nerves II through XII intact. Motor and sensory grossly within normal limits. Five out of 5 muscle strength in all muscle groups. Normal speech. Laboratory Laboratory Tests Test 12/02/17 07:30 Blood Urea Nitrogen 8 MG/DL Creatinine 0.98 MG/DL Random Glucose 116 MG/DL Calcium Level 8.9 MG/DL Sodium Level 138 MEQ/L Potassium Level 3.5 MEQ/L Chloride Level 106 MEQ/L Carbon Dioxide Level 21.7 MEQ/L Anion Gap 10 MEQ/L Estimat Glomerular Filtration Rate 59 ML/MIN Triglycerides Level 161 MG/DL Cholesterol Level 191 MG/DL LDL Cholesterol 117 MG/DL HDL Cholesterol 41.7 MG/DL Cholesterol/HDL Ratio 4.58 RATIO Result Diagram: 12/02/17 0830 Assessment and Plan Problem List: (1) Hypertensive urgency ICD Codes: I16.0 - Hypertensive urgency Plan: Hypertensive urgency -Hypertension likely related to psychosis/agitation. The blood pressure improved greatly once patient is calm -Continue to advise clonidine as needed. Do not want to add scheduled hypertensive medications due to concern of lowering blood pressure too much Hypothyroidism - resume patient's home Synthroid 50 mcg daily - TSH 1.78, free T4 1.27 Acute psychosis- unspecificed - Patient currently in psychiatic unit - further management per psych team - Toxicology screen positive for Cannabinoids - UA reviewed no culture indicated - Ethyl alcohol level < 3 - TSH 1.78, free T4, B12 584, Folate 17.1, RPR nonreactive - CT head reviewed and reveals exam degraded by motion. No acute intracranial abnormalities. Mechanical fall -Patient had mechanical fall while in the shower - Patient had abrasion on right knee local wound care was provided by nursing - Patient able to stand and ambulate post fall complaining of right knee pain - X-ray right knee reviewed and reveals no fracture seen. There is an opacity which superimposes upon the medial femoral condyle on frontal view. Differential considerations include osteochondritis and a loose body. Dr. Foster discussed imaging with radiologist who reiterated there is no effusion and feels that the opacity is chronic in nature not acute Patient is ambulating about the unit and is low risk for DVT. Also unable to use SCDs in the inpatient psychiatric setting (2) Unspecified psychosis ICD Codes: F29 - Unspecified psychosis not due to a substance or known physiological condition (3) Fall ICD Codes: W19.XXXA - Unspecified fall, initial encounter Assessment and Plan Patient examined. Assessment and plan formulated with Mariam Loo PA-C. I agree with the above. Pt requesting narcotics. Mariam Loo December 03, 2017 12:41 Bradford Foster DO December 03, 2017 23:40
[2017-12-03 12:53] LABS: HEMOGLOBIN A1C 5.6 % (4.3-6.0)
--- NOTE | 2017-12-03 13:11 | EKG ---
Date Performed: 12/02/2017 Time Performed: 13:10:18 PTAGE: 52 years EKG: SINUS TACHYCARDIA BORDERLINE ATRIAL ABNORMALITY OTHERWISE WITHIN NORMAL LIMITS ABNORMAL RHY THM ECG Since PREVIOUS TRACING , no significant change noted PREVIOUS TRACIN11/30/2017 15.21 DOCTOR: Daniel Harvey Interpretating Date/Time 12/03/2017 13:09:35
[2017-12-03] MEDS: ACETAMINOPHEN 325 MG TAB PO PRN ×3 (13:46→23:11)
--- NOTE | 2017-12-03 15:00 | PD.PSY.CON ---
Provisional Diagnosis Admission Date December 01, 2017 at 19:02 [place] I. 1. Unspecified psychosis [place] II. Deferred History of Present Illness Service Psychiatry Consult Requested By Dr. Baird Reason for Consult Second opinion for involuntary psychiatric hospitalization Primary Care Physician No Primary Care Physician HPI From Dr. Baird's H&P: 12/01/2017 The patient is 52-year-old woman, domiciled in [facility] , single, no kids, unemployed, supported by [facility], with reported psychiatric history of depression, no previous psychiatric hospitalizations, no previous suicide attempts, she has outpatient psychiatric care in [place] with Ms. Rivers , nurse practitioner, she does not remember the medication that she is taking, medical history of hypertension, hypothyroidism, diabetes not currently taking her prescribed medication, Patient was brought to the emergency department by EMS after she was found in front of a marijuana clinic, appearing disoriented. Per ER notes patient had complained of nausea to EMS and was given Zofran. On evaluation patient appears acutely psychotic and is unable to give a acute history. Patient also agitated and wanting to leave the hospital. Patient has been placed under campos act by ER MD DUE to psychotic behavior.BP on arrival to the ER 213/105 then increased to 238/119. TSH 1.78, free T4, B12 584, Folate 17.1, RPR nonreactive. CT head pending. EMR was reviewed. Case was discussed with primary medical team. On psychiatric evaluation I find a patient that is irritable, poorly cooperative, very suspicious, internally preoccupied, paranoid and also acting very erratically. Once the patient saw me and I presented myself with a psychiatrist she is started yelling at me stating that "you know everything is inside my bag, I am going to get the papers they looking for", and she is seen looking persistently inside her bag. When I asked her why does she think that I looking for any, her answer is "I do not know exactly who sent you here and why are you here", and become extremely tangential with David loosening of associations. She makes several accusations with no based in reality. She seems to have a poor content with the reality but also a very poor ego boundaries. When I got out of the room and I was speaking with her nurse the patient continued inside her room talking to herself , became quite agitated and got half naked out of her room. I was able to redirect her and deescalated her verbally. The nurse reports that the patient has been very disorganized, verbally hostile, talking to herself very difficult to deal with in the medical floor. 12/02/2017 on the psychiatric evaluation today the patient is found in her room, she is calm, cooperative, but continues to be quite disorganized, tangential with very odd behavior. She reports feeling much better, she says that she is happy to be here, but "please I do want to be in the newspaper". The patient has been witnessed to be very internally preoccupied, talking to herself in her room by nurses. She denies suicidal enemas ideation, she denies visual and auditory hallucinations. She clarifies that she has outpatient psychiatric care in [place] with Ms. Rivers, she says that she has been in Remeron 45 mg and "other medications that I do not remember". She denies the use of illegal drugs or alcohol. She is fully oriented 3. On my examination today, 12/03: Patient seen and examined with nurse. Chart reviewed. Case discussed with nursing staff who reports patient has been behaving in an odd fashion on the unit for example claiming that she cannot walk even though she ambulates without difficulty. She also was swinging a pillow case filled with items overnight per nursing report. On my examination today, the patient presents as very oddly related and somewhat sarcastic. She tells me that all that she needs this to be prescribed cannabis. She says that she was intentionally behaving in an odd manner outside of the cannabis dispensary prior to her presentation here in order to get brought into the hospital. She tells me "my life has gotten better since I was sent here to [facility]." This plan as she describes it seems quite irrational in context. She denies any SI or HI but seems unreliable to contract for safety. Denies any AVH but seems internally stimulated. She is fairly watchful and paranoid. Remainder of the psychiatric ROS is negative. No acute physical complaints. Past psychiatric history: Patient reports a history of depression. She follows with a psychiatrist in [place]. She denies a history of suicide attempts. Family history: Patient reports a family history of depression. Chemical dependency history: Patient denies any abuse of drugs or alcohol. Urine toxicology was positive for cannabinoids on presentation here. Social history: Patient lives with pet dog. She has some college. She is on disability. 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 Review of Systems ROS Limitations: Psychotic, Poor Historian Except as stated in HPI: all other systems reviewed are Neg Past Family Social History Coded Allergies: cyclobenzaprine (Verified Allergy, Intermediate, 11/30/17) itch Penicillins (Verified Allergy, Unknown, 11/30/17) Past Medical History See electronic medical record. Active Scripts Levothyroxine (Synthroid) 50 Mcg Tab, 50 MCG PO DAILY@0600 for thyroid, #30 TAB 0 Refills Prov:Mariam Loo 12/01/17 Clonidine (Clonidine) 0.1 Mg Tab, 0.1 MG PO Q6HR Y for SBP>160, DBP>90, #30 TAB 0 Refills Prov:Mariam Loo 12/01/17 Reported Medications Nifedipine ER 24 HR (Procardia XL) 30 Mg Tab, 30 MG PO DAILY, #30 TAB 0 Refills 12/01/[address] (Aspirin EC) 81 Mg Tabdr, 81 MG PO DAILY, TAB 0 Refills 12/01/17 Quetiapine (Quetiapine) 25 Mg Tab, 25 MG PO BID, #60 TAB 0 Refills 12/01/17 Current Medications Medications (Trade) Dose Ordered Sig/Sonia Route Start Time Stop Time Status Last Admin (Ecotrin Ec) 81 mg DAILY PO 12/02/17 09:00 12/03/17 09:54 (Catapres) 0.1 mg Q6HR PRN PO 12/01/17 22:30 12/02/17 07:02 (Synthroid) 50 mcg DAILY@0600 PO 12/02/17 06:00 12/03/17 06:10 (Procardia Xl) 30 mg DAILY PO 12/02/17 09:00 12/03/17 09:00 (Ativan) 1 mg Q6H PRN PO 12/01/17 22:30 12/02/17 16:08 (Ativan Inj) 1 mg Q6H PRN IM 12/01/17 22:30 (Benadryl) 50 mg HS PRN PO 12/01/17 22:30 12/02/17 20:48 (Tylenol) 650 mg Q4H PRN PO 12/01/17 22:30 12/03/17 13:46 (Milk Of Magnesia Liq) 30 ml DAILY PRN PO 12/01/17 22:30 (Mag-Al Plus Susp Liq) 30 ml Q6H PRN PO 12/01/17 22:30 (Habitrol 21 Mg Patch.24 Hr) 1 patch DAILY T-DERMAL 12/02/17 09:00 12/03/17 09:00 Miscellaneous Information 1 DAILY T-DERMAL 12/02/17 09:00 (Abilify) 5 mg DAILY PO 12/02/17 16:00 12/03/17 09:54 (Remeron) 15 mg HS PO 12/02/17 21:00 12/02/17 20:48 Patient's Strengths (min. 2) In a monitored setting. Verbally fluent. Physical Exam Physical exam completed by hospitalist sales consultant residential manager. On my examination today, the patient appears to be in no acute physical distress. No motor abnormalities noted. Labs and vitals reviewed: Vital Signs Vital Signs Date Time Temp Pulse Resp B/P (MAP) Pulse Ox O2 Delivery O2 Flow Rate FiO2 12/03/17 06:36 98.0 97 19 140/90 (107) 100 Lab Results Laboratory Tests Test 12/02/17 07:30 Blood Urea Nitrogen 8 MG/DL Creatinine 0.98 MG/DL Random Glucose 116 MG/DL Calcium Level 8.9 MG/DL Sodium Level 138 MEQ/L Potassium Level 3.5 MEQ/L Chloride Level 106 MEQ/L Carbon Dioxide Level 21.7 MEQ/L Anion Gap 10 MEQ/L Estimat Glomerular Filtration Rate 59 ML/MIN Hemoglobin A1c 5.6 % Triglycerides Level 161 MG/DL Cholesterol Level 191 MG/DL LDL Cholesterol 117 MG/DL HDL Cholesterol 41.7 MG/DL Cholesterol/HDL Ratio 4.58 RATIO Mental Status Examination Appearance: Disheveled Consciousness: Alert Orientation: x4 Motor Activity: Normal gait Speech: Unremarkable Language: Adequate Fund of Knowledge: Adequate Attention and Concentration: Adequate Memory: Unremarkable Mood: Oppositional, Irritable Affect: Blunt Thought Process & Associations: Circumstantial Thought Content: Bizarre thinking, Thought blocking Hallucination Type: None (But appears somewhat internally preoccupied) Delusion Type: Bizarre, Paranoid Suicidal Ideation: No Suicidal Plan: No Suicidal Intention: No Homicidal Ideation: No Homicidal Plan: No Homicidal Intention: No Insight: Poor Judgment: Poor Assessment & Plan Problem List: (1) Unspecified psychosis ICD Codes: F29 - Unspecified psychosis not due to a substance or known physiological condition Assessment & Plan Given the circumstances of the patient's presentation here and her presentation on my examination today, I concur that the patient meets criteria for involuntary psychiatric hospitalization under the Campos act. Main concern here is for self-care deficit secondary to psychiatric illness. I will titrate patient's Abilify to target psychotic symptoms. Hospitalist input appreciated. Continue other medications and care as ordered. Discharge Planning As ordered by primary psychiatrist. Patient requires ongoing hospitalization secondary to med changes. Risk for decompensation in less restrictive environment. Adam Sargent MD December 03, 2017 15:00
[2017-12-03 15:19] VITALS: BP 130/77; PULSE 107; RESP 18; TEMP 98.1; O2SAT 100
[2017-12-03] MEDS: LORazepam 1 MG TAB PO PRN (17:12)
[2017-12-03] MEDS: diphenhydrAMINE HCL 50 MG CAP PO PRN (21:00)
[2017-12-03] MEDS: MIRTAZAPINE 15 MG TAB PO SCH (21:00)
[2017-12-04 01:40] VITALS: BP 180/110; PULSE 110; RESP 20
[2017-12-04] MEDS: cloNIDine HCL 0.1 MG TAB PO PRN ×2 (01:45→08:33)
[2017-12-04] MEDS: ACETAMINOPHEN 325 MG TAB PO PRN ×2 (06:03→13:38)
[2017-12-04] MEDS: LORazepam 1 MG TAB PO PRN (06:04)
[2017-12-04] MEDS: LEVOTHYROXINE SODIUM 50 MCG TAB PO SCH (06:04)
[2017-12-04 06:19] VITALS: BP 180/101; PULSE 101; RESP 18; TEMP 98.2; O2SAT 98
[2017-12-04] MEDS: ASPIRIN EC 81 MG TABEC PO SCH (08:28)
[2017-12-04] MEDS: NICOTINE 21 MG/24 HR PATCH T-DERMAL SCH (08:31)
[2017-12-04] MEDS ORDERED: NIFEdipine 30 MG SUSTAINED RELEASE TAB PO SCH (09:00)
[2017-12-04] MEDS ORDERED: ARIPiprazole 5 MG TAB PO SCH (09:00)
--- NOTE | 2017-12-04 11:59 | HHI.DS ---
Psychiatry Discharge Summary Inpatient Psychiatric care?: Yes Advance Directive: No Reason Not Provided: Due to Patient Condition Mental Health AdvanceDirective: No Health Care Proxy: No Admission Admission Date December 01, 2017 at 19:02 Admission Diagnosis: (1) Acute psychosis ICD Code: F23 - Brief psychotic disorder Brief History From Dr. Baird's H&P: 12/01/2017 The patient is 52-year-old woman, domiciled in [facility] , single, no kids, unemployed, supported by [facility], with reported psychiatric history of depression, no previous psychiatric hospitalizations, no previous suicide attempts, she has outpatient psychiatric care in [place] with Ms. Rivers , nurse practitioner, she does not remember the medication that she is taking, medical history of hypertension, hypothyroidism, diabetes not currently taking her prescribed medication, Patient was brought to the emergency department by EMS after she was found in front of a marijuana clinic, appearing disoriented. Per ER notes patient had complained of nausea to EMS and was given Zofran. On evaluation patient appears acutely psychotic and is unable to give a acute history. Patient also agitated and wanting to leave the hospital. Patient has been placed under campos act by ER MD DUE to psychotic behavior.BP on arrival to the ER 213/105 then increased to 238/119. TSH 1.78, free T4, B12 584, Folate 17.1, RPR nonreactive. CT head pending. EMR was reviewed. Case was discussed with primary medical team. On psychiatric evaluation I find a patient that is irritable, poorly cooperative, very suspicious, internally preoccupied, paranoid and also acting very erratically. Once the patient saw me and I presented myself with a psychiatrist she is started yelling at me stating that "you know everything is inside my bag, I am going to get the papers they looking for", and she is seen looking persistently inside her bag. When I asked her why does she think that I looking for any, her answer is "I do not know exactly who sent you here and why are you here", and become extremely tangential with David loosening of associations. She makes several accusations with no based in reality. She seems to have a poor content with the reality but also a very poor ego boundaries. When I got out of the room and I was speaking with her nurse the patient continued inside her room talking to herself , became quite agitated and got half naked out of her room. I was able to redirect her and deescalated her verbally. The nurse reports that the patient has been very disorganized, verbally hostile, talking to herself very difficult to deal with in the medical floor. 12/02/2017 on the psychiatric evaluation today the patient is found in her room, she is calm, cooperative, but continues to be quite disorganized, tangential with very odd behavior. She reports feeling much better, she says that she is happy to be here, but "please I do want to be in the newspaper". The patient has been witnessed to be very internally preoccupied, talking to herself in her room by nurses. She denies suicidal enemas ideation, she denies visual and auditory hallucinations. She clarifies that she has outpatient psychiatric care in [place] with Ms. Rivers, she says that she has been in Remeron 45 mg and "other medications that I do not remember". She denies the use of illegal drugs or alcohol. She is fully oriented 3. On my examination today, 12/03: Patient seen and examined with nurse. Chart reviewed. Case discussed with nursing staff who reports patient has been behaving in an odd fashion on the unit for example claiming that she cannot walk even though she ambulates without difficulty. She also was swinging a pillow case filled with items overnight per nursing report. On my examination today, the patient presents as very oddly related and somewhat sarcastic. She tells me that all that she needs this to be prescribed cannabis. She says that she was intentionally behaving in an odd manner outside of the cannabis dispensary prior to her presentation here in order to get brought into the hospital. She tells me "my life has gotten better since I was sent here to [facility]." This plan as she describes it seems quite irrational in context. She denies any SI or HI but seems unreliable to contract for safety. Denies any AVH but seems internally stimulated. She is fairly watchful and paranoid. Remainder of the psychiatric ROS is negative. No acute physical complaints. Past psychiatric history: Patient reports a history of depression. She follows with a psychiatrist in [place]. She denies a history of suicide attempts. Family history: Patient reports a family history of depression. Chemical dependency history: Patient denies any abuse of drugs or alcohol. Urine toxicology was positive for cannabinoids on presentation here. Social history: Patient lives with pet dog. She has some college. She is on disability. 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 Tobacco Use In Past 30 Days: No Tobacco Past 30 Days Alcohol Use: Monthly or Less Hospital Course Patient seen today with nurse. Patient initially admitted by Dr. Maxwell, also seen by Dr. Sargent. Patient here with me is calm and cooperative denying suicidality homicidality voice or visions. States the main purpose for being here is related to her frustration with her inability to get her perceived pain relief. She goes for marijuana Dr. she states she drives an hour and a half to see him. But it is too expensive. She also sees a psychiatrist locally Dr. Solis on a routine basis and appears to be prescribed multiple various medications. Patient states she has a supply of her scheduled medications at home and that she does not abuse them. At this time patient does not meet Campos act criteria I will lift Campos act will allow patient to be discharged to herself, the B no Rx by me, she may follow-up with her primary care physician and her psychiatrist Results Blood Pressure 180 / 101 Vital Signs Date Time Temp Pulse Resp B/P (MAP) Pulse Ox O2 Delivery O2 Flow Rate FiO2 12/04/17 06:19 98.2 101 18 180/101 (127) 98 Laboratory Tests Test 12/02/17 07:30 Random Glucose 116 MG/DL (74-106) Estimat Glomerular Filtration Rate 59 ML/MIN (>89) Triglycerides Level 161 MG/DL (42-150) LDL Cholesterol 117 MG/DL (0-99) Laboratory Results Test 12/02/17 07:30 Cholesterol Level 191 MG/DL (120-200) HDL Cholesterol 41.7 MG/DL (40.0-60.0) Hemoglobin A1c 5.6 % (4.3-6.0) LDL Cholesterol 117 MG/DL (0-99) Triglycerides Level 161 MG/DL (42-150) Summary of Procedures None done Pending results at discharge: No Medications # of Antipsychotic meds at D/C: 0 Approp Antipsych med options 1 - Minimum of three failed multiple trials of monotherapy. 2 - Documented plan to taper to monotherapy due to previous use of multiple meds OR cross-taper in progress at D/C. 3 - Documentation of augmentation of Clozapine. 4 - Justification other than those listed in allowable values 1-3, document here : Discharge Discharge Date: December 04, 2017 Discharge Diagnosis: (1) Acute psychosis ICD Code: F23 - Brief psychotic disorder Status: Resolved Pt Condition on Discharge: Stable Discharge Disposition: Discharge Home Discharge Instructions Diet Instructions: As Tolerated, No Restrictions Activities you can perform: Regular-No Restrictions Scheduled Appointment: Private Psychiatrist (Dr. Solis, also follow-up private physician marijuana prescribed) Discharge Time > 30 minutes Mental Status Examination Appearance: Disheveled Consciousness: Alert Orientation: x4 Motor Activity: Normal gait Speech: Unremarkable Language: Adequate Fund of Knowledge: Adequate Attention and Concentration: Adequate Memory: Unremarkable Mood: Oppositional, Irritable Affect: Blunt Thought Process & Associations: Circumstantial Thought Content: Bizarre thinking, Thought blocking Hallucination Type: None (But appears somewhat internally preoccupied) Delusion Type: Bizarre, Paranoid Suicidal Ideation: No Suicidal Plan: No Suicidal Intention: No Homicidal Ideation: No Homicidal Plan: No Homicidal Intention: No Insight: Poor Judgment: Poor Discharge/Advance Care Plan Health Problems: (1) Unspecified psychosis Goals to promote your health * To prevent worsening of your condition and complications * To maintain your health at the optimal level Directions to meet your goals Take your medications as prescribed Follow your dietary instruction Follow activity as directed Keep your appointments as scheduled Take your immunizations and boosters as scheduled If your symptoms worsen call your PCP, if no PCP go to Urgent Care Center or Emergency Room For 30/01 questions related to your inpatient stay or results of tests pending at discharge, please contact Dr. Anthony Mensah at Smoking is Dangerous to Your Health. Avoid second hand smoking Anthony Mensah MD December 04, 2017 11:59
== END 2017-12-04 16:00 | disposition home or self-care (01) | DRG 885 ==
LOC: H4EA 19:02 → H270 12-02 19:45
PROVIDERS: ADMIT Psychiatry & Neurology Psychiatry; ATTEND Psychiatry & Neurology Psychiatry
DX: F23 Brief psychotic disorder (principal); I10 Essential (primary) hypertension; I16.0 Hypertensive urgency; F12.90 Cannabis use, unspecified, uncomplicated; S80.211A Abrasion, right knee, initial encounter; W18.30XA Fall on same level, unspecified, initial encounter; E03.9 Hypothyroidism, unspecified; Z88.0 Allergy status to penicillin; Z88.8 Allergy status to other drugs, medicaments and biological substances; Z79.82 Long term (current) use of aspirin
CPT/HCPCS: 80048; 80061; 83036; 93005; J1630; Q0163